=== PATIENT | female | born 1980 | race Caucasian/White ===

== ENCOUNTER 2016-11-13 14:42 | Emergency (ER) | payer MEDICAID, OTHER ==
[~2016-11-13] VITALS: Ht 154.9 cm; Wt 84.5 kg
[2016-11-13 14:44] VITALS: Ht 154.9 cm; Wt 84.5 kg
[2016-11-13] MEDS ORDERED: DICYCLOMINE 10 MG CAP PO ONE (15:00)
[2016-11-13] MEDS ORDERED: SOD CHLORIDE 0.9% 1,000 ML IV ONE (15:00)
[2016-11-13] MEDS ORDERED: ACETAMINOPHEN 500 MG TAB PO STA (15:07)
[2016-11-13 15:17] LABS: ADD SCAN DIFF NO
[2016-11-13 15:20] LABS: BASOPHILS % 0.1 % (0.0-2.0); EOSINOPHILS % 0.3 % (0.0-7.0); HEMATOCRIT 37.9 % (37.0-47.0); HEMOGLOBIN 12.7 g/dl (12.0-16.0); LYMPHOCYTES # 1.1 10^3/ul (0.8-2.9); LYMPHOCYTES % 10.5 % (15.0-51.0); MEAN CORPUSCULAR HGB CONC 33.5 g/dl (32.0-37.0); MEAN CORPUSCULAR VOLUME 83.5 fl (82.0-101.0); MEAN PLATELET VOLUME 8.3 fl (7.4-10.4); MONOCYTES % 8.9 % (0.0-11.0); NEUTROPHIL # 8.7 10^3/ul (1.6-7.5); NEUTROPHILS % 79.9 % (39.0-77.0); PLATELET COUNT 442 10^3/UL (140-415); RED BLOOD COUNT 4.54 10^6/ul (4.20-5.40); RED CELL DISTRIBUTION WIDTH 12.3 % (11.5-14.5); WHITE BLOOD COUNT 10.9 10^3/ul (4.8-10.8)
[2016-11-13 15:35] LABS: ALBUMIN 3.6 g/dl (3.3-4.9)
[2016-11-13 15:36] LABS: POTASSIUM 3.9 mmol/L (3.5-5.1)
[2016-11-13 15:38] LABS: ALBUMIN/GLOBULIN RATIO 0.85; BILIRUBIN,INDIRECT 0.3 mg/dl (0-1.1); BILIRUBIN,TOTAL 0.3 mg/dl (0.2-1.3); CREATININE 0.5 mg/dl (0.44-1.00); TOTAL PROTEIN 7.8 g/dl (6.1-8.1)
[2016-11-13 15:39] LABS: CALCIUM 8.9 mg/dl (8.4-10.2)
[2016-11-13 15:56] LABS: ADD UMIC YES; URINE BILIRUBIN (Dip) NEGATIVE (NEGATIVE); URINE BLOOD (Dip) 2+ (NEGATIVE); URINE COLOR LT. YELLOW (YELLOW); URINE GLUCOSE (Dip) NEGATIVE (NEGATIVE); URINE KETONES (Dip) TRACE (NEGATIVE); URINE LEUKOCYTE ESTERASE (Dip) 1+ (NEGATIVE); URINE NITRITE (Dip) NEGATIVE (NEGATIVE); URINE TOTAL PROTEIN (Dip) NEGATIVE (NEGATIVE); URINE UROBILINOGEN (Dip) 0.2 E.U./dL (0.1-1.0)
[2016-11-13 16:14] LABS: BACTERIA,URINE MODERATE; SQUAMOUS EPITHELIAL CELL,UR MANY
[2016-11-13] MEDS ORDERED: DICY10CA60 PO (16:17)
[2016-11-13] MEDS ORDERED: NITR-58 PO (16:17)
--- NOTE | 2016-11-13 16:31 | ERD ---
ER Documentation Chief Complaint Date/Time DATE: 11/13/16 TIME: 16:23 Chief Complaint diarrhea and fever x 1 day HPI This is a 36-year-old female presents to the ER with fever and diarrhea for the last day. Patient states that diarrhea is watery with no blood in it. She also is having abdominal pain when she is about to have a bowel movement. Patient denies any urinary frequency or dysuria she denies any nausea or vomiting. She has had a fever at home she denies any chills. She has not traveled anywhere she denies anything different there are no sick contacts at home. ROS 12 point review of systems was done, all negative except per HPI. Medications Home Meds Active Scripts Dicyclomine Hcl* (Bentyl*) 10 Mg Capsule, 10 MG PO QID for 7 Days, CAP Prov:MADAY,HENRI C 11/13/16 Nitrofurantoin Monohyd Macrocr* (Macrobid*) 100 Mg Capsr, 100 MG PO BID for 7 Days, CAP Prov:MADAY,HENRI C 11/13/16 Allergies Allergies: Coded Allergies: No Known Allergy (Unverified Allergy, Unknown, 07/06/06) PMhx/Soc History of Surgery: No Anesthesia Reaction: No Hx Neurological Disorder: No Hx Respiratory Disorders: No Hx Cardiac Disorders: No Hx Psychiatric Problems: No Hx Miscellaneous Medical Probl: No Hx Alcohol Use: No Hx Substance Use: No Hx Tobacco Use: No Physical Exam Vitals Vital Signs Date Time Temp Pulse Resp B/P Pulse Ox O2 Delivery O2 Flow Rate FiO2 11/13/16 14:44 101.5 132 26 143/82 99 Physical Exam GENERAL: The patient is well-developed, well-nourished, in no acute distress. NECK: Cervical spine is non tender with no step off. Supple, no nuchal rigidity HEENT: Atraumatic. Pupils equal, round and reactive to light. Extraocular muscles are grossly intact. Conjunctivae pink, no discharge. The oropharynx is clear with no erythema or exudates and the mucosa is moist. No signs of dehydration. RESPIRATORY: Clear to auscultation bilaterally. There are no rales, wheezes or rhonchi HEART: Regular rate and rhythm. No murmurs, clicks, rubs or gallops. ABDOMEN: Soft, nontender, nondistended. Active bowel sounds in all 4 quadrants. No rebounding or guarding. Negative McBurney point tenderness. NEUROLOGIC: Alert and oriented. SKIN: There is no rash. The skin is warm and dry. Normal capillary refill. Result Diagram: 11/13/16 1510 11/13/16 1510 Results 24 hrs Laboratory Tests Test 11/13/16 15:10 11/13/16 15:15 White Blood Count 10.910^3/ul Red Blood Count 4.5410^6/ul Hemoglobin 12.7g/dl Hematocrit 37.9% Mean Corpuscular Volume 83.5fl Mean Corpuscular Hemoglobin 28.0pg Mean Corpuscular Hemoglobin Concent 33.5g/dl Red Cell Distribution Width 12.3% Platelet Count 46489^3/UL Mean Platelet Volume 8.3fl Neutrophils % 79.9% Lymphocytes % 10.5% Monocytes % 8.9% Eosinophils % 0.3% Basophils % 0.1% Nucleated Red Blood Cells % 0.0/100WBC Neutrophils # 8.710^3/ul Lymphocytes # 1.110^3/ul Monocytes # 1.010^3/ul Eosinophils # 0.010^3/ul Basophils # 0.010^3/ul Nucleated Red Blood Cells # 0.010^3/ul Sodium Level 136mmol/L Potassium Level 3.9mmol/L Chloride Level 102mmol/L Carbon Dioxide Level 22mmol/L Anion Gap 16 Blood Urea Nitrogen 6mg/dl Creatinine 0.50mg/dl Glucose Level 89mg/dl Calcium Level 8.9mg/dl Total Bilirubin 0.3mg/dl Direct Bilirubin 0.00mg/dl Indirect Bilirubin 0.3mg/dl Aspartate Amino Transf (AST/SGOT) 17IU/L Alanine Aminotransferase (ALT/SGPT) 29IU/L Alkaline Phosphatase 89IU/L Total Protein 7.8g/dl Albumin 3.6g/dl Globulin 4.20g/dl Albumin/Globulin Ratio 0.85 Urine Color LT. YELLOW Urine Clarity CLOUDY Urine pH 5.5 Urine Specific [place] 1.025 Urine Ketones TRACE Urine Nitrite NEGATIVE Urine Bilirubin NEGATIVE Urine Urobilinogen 0.2 E.U./dL Urine Leukocyte Esterase 1+ Urine Microscopic RBC 5-10/HPF Urine Microscopic WBC 10-25/HPF Urine Squamous Epithelial Cells MANY Urine Bacteria MODERATE Urine Hemoglobin 2+ Urine Glucose NEGATIVE% Urine Total Protein NEGATIVE Current Medications Medications (Trade) Dose Ordered Sig/Raymundo Route PRN Reason Start Time Stop Time Status Last Admin Dose Admin Sodium Chloride (NS) 1,000 ml @ 1,000 mls/hr Q1H ONCE IV 11/13/16 15:00 11/13/16 15:59 DC 11/13/16 15:12 Dicyclomine HCl (Bentyl) 20 mg ONCE ONCE PO 11/13/16 15:00 11/13/16 15:01 DC 11/13/16 15:11 Acetaminophen (Tylenol Tab) 1,000 mg ONCE STAT PO 11/13/16 15:07 11/13/16 15:08 DC 11/13/16 15:11 Procedures/MDM This is a 36-year-old female presents to the ER with fever and diarrhea for the last day. At this time patient's abdominal examination is benign suspicion for acute abdomen such as appendicitis or diverticulitis is low. This is likely viral in etiology. Patient was given fluids in the ER and felt significantly better her fever was also controlled. Patient did have a urinary tract infection in the ER, she will be sent home with Macrobid. Patient will be given Bentyl for her abdominal cramping. Patient is to follow-up with her primary care doctor within 1-2 days or return to ER sooner if symptoms worsen. My medical decision making shared with the patient she understands and agrees with plan. Departure Diagnosis: Primary Impression: UTI (urinary tract infection) Additional Impression: Diarrhea Condition: Stable Patient Instructions: Treating Diarrhea, Understanding Urinary Tract Infections (UTIs) Additional Instructions: Call your primary care doctor TOMORROW for an appointment during the next 1-2 days.See the doctor sooner or return here if your condition worsens before your appointment time. HENRI NASSAR November 13, 2016 16:31
== END 2016-11-13 16:28 | disposition home or self-care (01) ==
LOC: FTE 14:42
DX: N39.0 Urinary tract infection, site not specified (principal)
CPT/HCPCS: 80053; 81001; 85025; J7030; Z7502; Z7610; 81003

== ENCOUNTER 2017-05-30 23:12 | Emergency (ER) | payer OTHER ==
[~2017-05-30] VITALS: Ht 154.9 cm; Wt 99.8 kg
[~2017-05-30 23:12] MED LIST: DICY10CA60 PO; NITR-58 PO
[2017-05-31 00:03] VITALS: Ht 154.9 cm; Wt 99.8 kg
--- NOTE | 2017-05-31 05:08 | ERD ---
ER Documentation Chief Complaint Chief Complaint left upper anterior rib pain x5 days. No Med Hx HPI 37-year-old female presents here to emergency department for complaints of left anterior rib pain for 5 days. Patient describes the pain as throbbing pain, throbbing, 6/10 scale, worse upon taking a deep breath. Patient did not take any medications to help with symptoms. Patient denies any direct trauma in affected area. Patient does not have any fever or chills. Patient does not have any cough shortness breath or wheezing. ROS All systems reviewed and are negative except as per history of present illness. Medications Home Meds Active Scripts Dicyclomine Hcl* (Bentyl*) 10 Mg Capsule, 10 MG PO QID for 7 Days, CAP Prov:MADAY,HENRI C 11/13/16 Nitrofurantoin Monohyd Macrocr* (Macrobid*) 100 Mg Capsr, 100 MG PO BID for 7 Days, CAP Prov:MADAY,HENRI C 11/13/16 Allergies Allergies: Coded Allergies: No Known Allergy (Unverified Allergy, Unknown, 07/06/06) PMhx/Soc Medical and Surgical Hx: pt denies Medical Hx, pt denies Surgical Hx History of Surgery: No Anesthesia Reaction: No Hx Neurological Disorder: No Hx Respiratory Disorders: No Hx Cardiac Disorders: No Hx Psychiatric Problems: No Hx Miscellaneous Medical Probl: No Hx Alcohol Use: No Hx Substance Use: No Hx Tobacco Use: No Smoking Status: Never smoker FmHx Family History: No coronary disease, No diabetes, No other Physical Exam Vitals Vital Signs Date Time Temp Pulse Resp B/P Pulse Ox O2 Delivery O2 Flow Rate FiO2 05/31/17 00:03 99.8 94 20 171/76 100 Physical Exam GENERAL: The patient is well developed and appropriate for usual state of health, in no apparent distress. CHEST: Clear to auscultation bilaterally. There are no rales, wheezes or rhonchi. Tenderness on palpation on the left anterior chest area. HEART: Regular rate and rhythm. No murmurs, clicks, rubs or gallops. No S3 or S4. ABDOMEN: Soft, nontender and nondistended. Good bowel sounds. No rebound or guarding. No gross peritonitis. No gross organomegaly or masses. No Callahan sign or McBurney point tenderness. BACK: No midline or flank tenderness. EXTREMITIES: Equal pulses bilaterally. There is no peripheral clubbing, cyanosis or edema. No focal swelling or erythema. Full range of motion. Grossly neurovascularly intact. NEURO: Alert and oriented. Cranial nerves 2-12 intact. Motor strength in all 4 extremities with 5/5 strength. Sensation grossly intact. Normal speech and gait. SKIN: There is no apparent rash or petechia. The skin is warm and dry. HEMATOLOGIC AND LYMPHATIC: There is no evidence of excessive bruising or lymphedema. No gross cervical, axillary, or inguinal lymphadenopathy. Results 24 hrs PROCEDURE: XR Ribs. CLINICAL INDICATION: L RIB PAIN TECHNIQUE: Multiple oblique views of the left ribs were obtained. The images were reviewed on a PACS workstation. COMPARISON: None. FINDINGS: No definite fracture or pneumothorax is seen. No pleural effusion is seen. The study is limited by body habitus. The lower ribs are not well seen. A BB marker indicates that this is the area of the patient's pain. IMPRESSION: No visualized fracture or pneumothorax. The patient has pain is in the region of the lower ribs, however, and the lower ribs are suboptimally seen due to body habitus. RPTAT: [facility] Physician [place] Date Time Electronically viewed and signed by Physician [place] on 05/31/2017 05 :08 LE/ CC: TIFFANY STACY [employer]PER[employer] Procedures/MDM Medical Decision Making: Symptoms most likely is consistent with musculoskeletal pain. Possible muscle strain. There is low suspicion for cardiopulmonary emergencies at this time. Patient has low risk factors. EKG is normal, there is no changes in the EKG that indicates cardiac emergencies. X- ray does not show any fractures.. There is low suspicion for aortic aneurysm, myocardial infarction, pneumothorax, pleural effusion, pulmonary embolism, or any other cardiopulmonary emergencies at this time. Patient was given prescription for ibuprofen, Tramadol is advised to follow-up with primary care doctor in 1-2 days for reevaluation of symptoms. Dispostion: Home. Stable Disclaimer: Inadvertent spelling and grammatical errors are likely due to EHR/ dictation software use and do not reflect on the overall quality of patient care. Also, please note that the electronic time recorded on this note does not necessarily reflect the actual time of the patient encounter. Departure Diagnosis: Primary Impression: Rib pain Condition: Stable Patient Instructions: Rib Contusion TIFFANY STACY NP May 31, 2017 05:07
--- NOTE | 2017-05-31 05:08 | RADRPT ---
PROCEDURE: XR Ribs. CLINICAL INDICATION: L RIB PAIN TECHNIQUE: Multiple oblique views of the left ribs were obtained. The images were reviewed on a [employer] workstation. COMPARISON: None. FINDINGS: No definite fracture or pneumothorax is seen. No pleural effusion is seen. The study is limited by body habitus. The lower ribs are not well seen. A BB marker indicates that this is the area of the patient's pain. IMPRESSION: No visualized fracture or pneumothorax. The patient has pain is in the region of the lower ribs, how ever, and the lower ribs are suboptimally seen due to body habitus. RPTAT: [facility] Physician [place] Date Time Electronically viewed and signed by Physician [place] on 05/31/2017 05:08 VIKY/
[2017-05-31] MEDS ORDERED: HYDR-906 PO (05:30)
[2017-05-31] MEDS ORDERED: IBUP-1542 PO (05:30)
== END 2017-05-31 06:03 | disposition home or self-care (01) ==
LOC: FTE 23:12
DX: R07.81 Pleurodynia (principal)
CPT/HCPCS: 71100; Z7502